=== PATIENT | male | born 1965 | race Caucasian/White ===

== ENCOUNTER 2019-12-16 08:56 | Day surgery (SDC) | payer OTHER ==
[2019-12-11 13:39] VITALS: BMI 24.7
[2019-12-16] MEDS ORDERED: ONDANSETRON 4 MG/2 ML VIAL ONE (09:43)
[2019-12-16] MEDS ORDERED: ceFAZolin SODIUM 1 GM VIAL ONE ×2 (09:43→10:46)
[2019-12-16] MEDS ORDERED: LIDOCAINE HCL/PF 2% SDV 5ML VIAL ONE ×2 (09:43→10:28)
[2019-12-16] MEDS ORDERED: DEXAMETHASONE SOD PHOSPHATE 4 MG/1 ML VIAL ONE (09:43)
[2019-12-16] MEDS ORDERED: KETOROLAC TROMETHAMINE 30 MG/1 ML VIAL ONE ×2 (09:43→10:56)
[2019-12-16] MEDS ORDERED: MIDAZOLAM HCL 2 MG/2 ML SINGLE DOSE VIAL ONE (09:44)
[2019-12-16] MEDS ORDERED: PROPOFOL 20 ML ONE ×2 (09:44→10:27)
[2019-12-16] MEDS ORDERED: BUPIVACAINE HCL/PF 0.5% (5MG/ML) 10 ML VIAL ONE (10:02)
[2019-12-16] MEDS ORDERED: LIDOCAINE 1%/EPI 1:100000 (20 ML MULTI DOSE VIAL) ONE (10:02)
[2019-12-16] MEDS ORDERED: ONDANSETRON 4 MG/2 ML VIAL IVPUSH PRN (10:52)
[2019-12-16] MEDS ORDERED: oxyCODONE HCL 5 MG TABLET PO PRN ×2 (10:52)
[2019-12-16] MEDS ORDERED: PROMETHAZINE HCL 25 MG/1 ML VIAL IVPUSH PRN (10:52)
[2019-12-16] MEDS ORDERED: BUPIVACAINE HCL/PF 0.5% (5 MG/ML) 30 ML VIAL IJ ONE (11:00)
[2019-12-16] MEDS ORDERED: LIDOCAINE 1%/EPI 1:100000 (20 ML MULTI DOSE VIAL) IJ ONE (11:08)
[2019-12-16 12:30] VITALS: TEMP 98.2
[2019-12-16 12:55] VITALS: BP 129/84; PULSE 72
== END 2019-12-16 13:02 | disposition home or self-care (01) ==
LOC: FASU 08:56
PROVIDERS: ATTEND Orthopaedic Surgery
PROC: 0SBC4ZZ Excision of Right Knee Joint, Percutaneous Endoscopic Approach (ICD-10-PCS; 2019-12-16)
PROC: 0SBC4ZZ Excision of Right Knee Joint, Percutaneous Endoscopic Approach (ICD-10-PCS; principal; 2019-12-16 10:30)
DX: M23.221 Derangement of posterior horn of medial meniscus due to old tear or injury, right knee (principal)
CPT/HCPCS: 29881; G0289; 94760

== ENCOUNTER 2020-11-03 10:21 | Emergency (ER) | payer OTHER ==
[2020-11-03 10:37] VITALS: BP 169/87; PULSE 80; TEMP 98.2; BMI 26.6
== END 2020-11-03 12:18 | disposition home or self-care (01) ==
LOC: JER 10:21
DX: R10.32 Left lower quadrant pain (principal)
CPT/HCPCS: 99281-25

== ENCOUNTER 2021-08-12 12:00 | Emergency (ER) | payer OTHER ==
[2021-08-12 12:07] VITALS: BP 160/90; PULSE 87; TEMP 98.2; BMI 24.7
== END 2021-08-12 13:14 | disposition home or self-care (01) ==
LOC: FER 12:00
DX: R10.32 Left lower quadrant pain (principal)
CPT/HCPCS: 99283-25